=== PATIENT | female | born 1985 | race Caucasian/White ===

== ENCOUNTER 2024-09-03 16:45 | Emergency (ER) | payer OTHER ==
[~2024-09-03] VITALS: Ht 167.6 cm; Wt 76.8 kg
[2024-09-03] MEDS: MORPHINE 4 MG/ML 1ML VIAL IV ONE (18:22)
[2024-09-03 19:50] VITALS: BP 130/64; TEMP 96.4; O2SAT 100
== END 2024-09-03 20:00 | disposition short-term general hospital (02) ==
LOC: M ED 16:45 → EDBD 16:45 → M ED 20:00
DX: S12.691A Other nondisplaced fracture of seventh cervical vertebra, initial encounter for closed fracture (principal); Y92.89 Other specified places as the place of occurrence of the external cause; Y93.23 Activity, snow (alpine) (downhill) skiing, snowboarding, sledding, tobogganing and snow tubing; Y99.9 Unspecified external cause status